=== PATIENT | male | born 1950 | race Caucasian/White ===

== ENCOUNTER 2021-01-08 15:24 | Emergency (ER) | payer MEDICARE, OTHER ==
[~2021-01-08] VITALS: Ht 167.6 cm; Wt 75.0 kg
--- NOTE | 2021-01-08 16:05 | RAD ---
Study: XR FOOT_LEFT 3 VIEWS Indication: Fall. Left foot pain. Comparison: None. Findings: Status post great toe phalangeal examination. 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 No displaced fracture seen throughout the foot. On the AP view there is a tiny focus of mineralizatio n projecting medial to the fifth PIP joint but not definitively acute. Flexion deformities of the res idual lesser toes. Arthrosis at a few locations is mild. Impression: No displaced fracture or traumatic malalignment. No retained radiopaque foreign body. Electronically signed by: EILEEN BHAKTA MD (01/08/2021 4:02 PM) [facility]
[2021-01-08] MEDS ORDERED: DIPH,PERTUSS(ACELL),TET VAC/PF 0.5 ML SYRINGE. VAX IM ONE (16:15)
--- NOTE | 2021-01-08 16:40 | PHYS DOC ---
Past Medical History Additional Past Medical Histor: Brain cancer Past Surgical History: Other Additional Past Surgical Histo: Brain tumor removed 2008 Smoking Status: Former Smoker Alcohol Use: None General Adult EDM: Chief Complaint: MECHANICAL FALL HPI: HPI: Patient is a 70 year old male with history of brain cancer, CVA with right- sided weakness, bilateral lower extremity contractures who presents with a mechanical fall in the restroom. He was inpatient and did not wait for his wheelchair for transfer and fell on the ground. 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 His witnessed the fall and stated that his toes got stuck/trapped on something. Started bleeding immediately after. and patient vehemently state that he did not strike his head. He denies confusion, nausea/vomiting, headache. No blood thinners or antiplatelet medications per pa tient/. EMS came originally and got him off of the floor. They cleared him, but then they were called back when his foot did not stop bleeding. Review of Systems: Review of Systems: Constitutional: Denies fever or chills. [] Eyes: Denies change in visual acuity. [] HENT: Denies nasal congestion or sore throat. [] Respiratory: Denies cough or shortness of breath. [] Cardiovascular: Denies chest pain or edema. [] GI: Denies abdominal pain, nausea, vomiting, bloody stools or diarrhea. [] : Denies dysuria. [] Musculoskeletal: Denies back pain or joint pain. [] Integument: Laceration to left foot. Denies rash. [] Neurologic: Denies headache, focal weakness or sensory changes. [] Endocrine: Denies polyuria or polydipsia. [] Lymphatic: Denies swollen glands. [] Psychiatric: Denies depression or anxiety. [] Heart Score: C/O Chest Pain: No Risk Factors: Risk Factors: DM, Current or recent (<one month) smoker, HTN, HLP, family history of CAD, obesity. Risk Scores: Score 0 - 3: 2.5% MACE over next 6 weeks - Discharge Home Score 4 - 6: 20.3% MACE over next 6 weeks - Admit for Clinical Observation Score 7 - 10: 72.7% MACE over next 6 weeks - Early Invasive Strategies Current Medications: Current Medications Medications (Trade) Dose Ordered Sig/Gely Start Time Stop Time Status Last Admin Dose Admin Diphtheria/ Tetanus/Acell Pertussis (ADACEL TDap SYRINGE) 0.5 ml ONCE ONCE 01/08/21 16:15 01/08/21 16:16 DC Allergies: Allergies: Allergies Coded Allergies Type Severity Reaction Last Updated Verified No Known Drug Allergies 01/08/21 No Physical Exam: PE: Constitutional: Well developed, well nourished, no acute distress, non-toxic appearance. [] HENT: Normocephalic, atraumatic, bilateral external ears normal, oropharynx moist, no oral exudates, nose normal. [] Eyes: PERRLA, EOMI, conjunctiva normal, no discharge. [] Neck: Normal range of motion, no tenderness, supple, no stridor. [] Cardiovascular:Heart rate regular rhythm, no murmur [] Lungs & Thorax: No chest wall or clavicular tenderness to palpation. Bilateral breath sounds clear to auscultation [] Abdomen: Bowel sounds normal, soft, no tenderness, no masses, no pulsatile masses. [] Skin: Warm, dry, no erythema, no rash. [] Back: No tenderness, no CVA tenderness. [] Extremities: Right shoulder with some redness in the area where he received his COVID-19 booster. Left foot s/p toe 1-2 amputation. The remaining 3 toes are severely contractured. There is a laceration at the base of each toe, but is difficult to expose given the contractures. Bleeding is hemostatic at this time. Normal range of motion of the shoulders, elbows, wrists, hands, hips, knees, and ankles. No deformity or focal tenderness. Neurologic: Alert and oriented X 3, normal motor function, normal sensory function, no focal deficits noted. [] Psychologic: Affect normal, judgement normal, mood normal. [] Current Patient Data: Vital Signs: Vital Signs Date Time Temp Pulse Resp B/P (MAP) Pulse Ox O2 Delivery O2 Flow Rate FiO2 01/08/21 15:43 98.3 69 115/55 (75) 91 Room Air 98.3 EKG: EKG: [] Radiology/Procedures: Radiology/Procedures: [] Impression: [facility] [address] [place] [address] IMAGING REPORT Signed PATIENT: JORGE L VAZQUEZ ACCOUNT: [id number] : 1950 LOCATION: ER AGE: 70 SEX: M EXAM STATUS: PRE ER ORD. PHYSICIAN: SHILA MORGAN MD REASON: fall, left foot pain, laceration at the base of 3 lateral toes. PROCEDURE: FOOT LEFT 3V Study: XR FOOT_LEFT 3 VIEWS Indication: Fall. Left foot pain. Comparison: None. Findings: Status post great toe phalangeal examination. Partial phalangeal amputation of the second toe with the base of the proximal phalanx remaining. No displaced fracture seen throughout the foot. On the AP view there is a tiny focus of mineralization projecting medial to the fifth PIP joint but not definitively acute. Flexion deformities of the residual lesser toes. Arthrosis at a few locations is mild. Impression: No displaced fracture or traumatic malalignment. No retained radiopaque foreign body. Electronically signed by: EILEEN BHAKTA MD (01/08/2021 4:02 PM) [facility] DICTATED and SIGNED BY: EILEEN BHAKTA MD DATE: 01/08/21 [id number] 0 Course & Med Decision Making: Course & Med Decision Making Pertinent Labs and Imaging studies reviewed. (See chart for details) Patient is 70-year-old male with history of stroke, brain cancer, gait imbalance, contractures of the toes who fell in his bathroom today. He has laceration at the base of his remaining 3 toes on the left foot. The contractures bring the lacerations into close approximation. Given the location, they are not amenable to suture. Tetanus was updated. Plain film did not show any bony injury. Given the location, the wounds were not closed. The foot was wrapped with abundant padding and he was provided with a postop shoe. I recommended head CT to the patient and the patient's , but they are certain that he did not strike his head and are asking to defer head imaging. I explained to them that if he develops confusion, headache, nausea/vomiting, or other new neurologic symptoms that he would require reevaluation. [id number] Lina Disclaimer: Lina Disclaimer: This electronic medical record was generated, in whole or in part, using a voice recognition dictation system. Departure Departure Impression: Primary Impression: Foot laceration Disposition: HOME / SELF CARE / HOMELESS Condition: STABLE Referrals: NO PCP (PCP) Additional Instructions: The area of the wound was not able to be closed with suture. Please keep the area well bandaged and padded. Please use this postop shoe if he is going to be bearing weight. Please follow-up with your primary care doctor to ensure the wound is healing well. I would prefer that they see you early next week. If he develops any headache, nausea, vomiting, confusion, or other neurologic symptoms please return to the emergency department for reevaluation. Likewise, if he develops fever/chills, pus draining from the foot, or other signs of infection please return to the emergency department. SHILA MORGAN MD Jan 08, 2021 16:39
[2021-01-08 17:27] VITALS: BP 141/63
== END 2021-01-08 17:42 | disposition home or self-care (01) ==
LOC: ER 15:24
DX: S91.312A Laceration without foreign body, left foot, initial encounter (principal); R53.1 Weakness; Z86.73 Personal history of transient ischemic attack (TIA), and cerebral infarction without residual deficits; Z87.891 Personal history of nicotine dependence; W18.39XA Other fall on same level, initial encounter; Y93.89 Activity, other specified; Y92.89 Other specified places as the place of occurrence of the external cause; Y99.8 Other external cause status
CPT/HCPCS: 73630; 90471; 90715; 99283-25; 99284-25